=== PATIENT | male | born 1985 | race Caucasian/White ===

== ENCOUNTER 2018-03-10 11:05 | Emergency (ER) | payer BC ==
[2018-03-10] MEDS ORDERED: Morphine INJ** 4 MG/ML 1 ML CARPUJECT IV ONE (11:36)
[2018-03-10] MEDS ORDERED: Ketorolac INJ* 30 MG/ML 1 ML VIAL IV PUSH ONE (11:36)
[2018-03-10] MEDS ORDERED: KETAMINE HCL* 50 MG/ML 10 ML VIAL IV ONE (12:39)
--- NOTE | 2018-03-10 12:46 | ED ---
Upper Extremity Pain - HPI Summary HPI Summary: Patient is a 32 y/o M w/ c/o right shoulder pain onsetting [employer]. He was getting out of his boat onto a dock when he slipped and fell in the water. While he was falling, he states he extended his right arm, jammed it, and is now experiencing pain at right shoulder. Pain is rated 10/10 on triage, movement is reported to aggravate pain with nothing alleviating. He notes penicillin and amoxicillin allergy. He denies smoking and drinking. Home medications and allergies denied. - History of Current Complaint Chief Complaint: EDShouDena Stated Complaint: POSS DISLOCATED RT SHOULDER Time Seen by Provider: 03/10/18 11:15 Hx Obtained From: Patient Mechanism Of Injury: Fall From A Standing Position Onset/Duration: Still Present Timing: Constant Severity Currently: Severe - 10/10 Pain Location: Shoulder - right Aggravating Factor(s): Movement Alleviating Factor(s): Nothing - Allergies/Home Medications Allergies/Adverse Reactions: Allergies Allergy/AdvReac Type Severity Reaction Status Date / Time amoxicillin Allergy Rash And Verified 03/10/18 11:11 Itching Penicillins Allergy Rash And Verified 03/10/18 11:12 Itching PMH/Surg Hx/FS Hx/Imm Hx Sensory History: Denies: Hx Legally Blind, Hx Deafness Opthamlomology History: Denies: Hx Legally Blind EENT History: Denies: Hx Deafness Infectious Disease History: No Infectious Disease History: Denies: Traveled Outside the [place] in Last 30 Days - Family History Known Family History: Negative: Blood Disorder - Social History Alcohol Use: Occasionally Substance Use Type: Reports: None Smoking Status (MU): Never Smoked Tobacco Review of Systems Negative: Fever - on vitals 97.2 F Positive: Other - right shoulder pain All Other Systems Reviewed And Are Negative: Yes Physical Exam - Summary Physical Exam Summary: Appearance: Well appearing, no pain distress Skin: warm, dry, reflects adequate perfusion Head/face: normal Eyes: EOMI, RADHA ENT: normal Neck: supple, non-tender Respiratory: CTA, breath sounds present Cardiovascular: RRR, pulses symmetrical Abdomen: non-tender, soft Bowel Sounds: present Musculoskeletal: pain in RUE without any deformity, strength/ROM intact Neuro: normal, sensory motor intact, A&Ox3 Triage Information Reviewed: Yes Vital Signs On Initial Exam: Initial Vitals Temp Pulse Resp BP Pulse Ox 97.2 F 85 19 152/99 95 03/10/18 11:07 03/10/18 11:07 03/10/18 11:07 03/10/18 11:07 03/10/18 11:07 Vital Signs Reviewed: Yes Procedures - Procedure Summary Procedure Summary: Closed reduction of the right shoulder: The patient's trapezius muscle and deltoid muscle were massaged for 10 minutes. External rotation of adducted arm successfully reduced the dislocation. Procedure was done without the need for conscious sedation. Patient regained FROM in RUE. Patient denied post reduction x-ray. He was placed in a sling post reduction. He tolerated this well without cough location. The extremity is neurovascularly intact. - Joint Reduction Right Joint Reduction Site: shoulder (R) Conscious Sedation: No Post Joint Reduction Film: refused post reduction x-ray Diagnostics - Vital Signs Vital Signs Temp Pulse Resp BP Pulse Ox 03/10/18 12:11 17 03/10/18 11:07 97.2 F 85 19 152/99 95 - Laboratory Lab Statement: Any lab studies that have been ordered have been reviewed, and results considered in the medical decision making process. - Radiology Right Shoulder X-ray Xray Interpretation: Positive (See Comments) Radiology Interpretation Completed By: Radiologist - REPORT AND IMPRESSION: #. Anterior glenohumeral dislocation. #. No associated Hill-Sachs impaction fracture or osseous Bankart lesion evident. #. Normal acromioclavicular joint alignment. #. Soft tissue swelling about the shoulder. This report was reviewed by ED physician. Re-Evaluation - Re-Evaluation First Eval Re-Evaluation Time: 12:47 Change: Improved Comment: Right shoulder reduction performed. Patient experienced immediate relief and has regained FROM in RUE, refuses post reduction X-ray. He will be discharged to home and is agreeable with plan. Course/Dx - Course Course Of Treatment: Patient with right shoulder dislocation. We are prepping to reduce him under moderate sedation however we are able to do this without after massage of the musculature. He refused any post reduction x-ray. He regained full range of motion and has no deltoid paresthesia. He was placed in a sling and will follow-up with his doctor. - Diagnoses Differential Diagnosis/HQI/PQRI: Positive: Contusion, Fracture (Closed), Strain , Sprain, Other - Dislocation Provider Diagnoses: Anterior dislocation of right shoulder Discharge - Sign-Out/Discharge Documenting (check all that apply): Patient Departure - admit - Discharge Plan Condition: Improved Disposition: HOME Patient Education Materials: Shoulder Dislocation Exercises (GEN), Shoulder Dislocation (ED) Referrals: [facility] [Outside] Additional Instructions: Follow-up with orthopedist as needed on your return home. Return with increased pain, weakness, numbness, new symptoms or other concerns. Tylenol, ibuprofen as needed for discomfort. Sling for the next week. - Billing Disposition and Condition Condition: IMPROVED Disposition: Home - Attestation Statements Document Initiated by Yoanibshun: Yes Documenting Scribe: Yinka Chin Provider For Whom Samson is Documenting (Include Credential): Mich Mcpherson MD Scribe Attestation: Yinka Sofia, scribed for Mich Mcpherson MD on 03/10/18 at 1545. Scribe Documentation Reviewed: Yes Provider Attestation: The documentation as recorded by the Yinka carson accurately reflects the service I personally performed and the decisions made by me, Mich Mcpherson MD
[2018-03-10] MEDS ORDERED: oxyCODONE/Acetamin 5/325 MG* TAB PO ONE (12:54)
--- NOTE | 2018-03-10 12:55 | RAD ---
Indication: RIGHT shoulder pain post fall with dislocation. Limited range of motion. Comparison: No relevant prior exams available on the [facility] for comparison. Technique: AP and scapular Y views RIGHT shoulder REPORT AND IMPRESSION: #. Anterior glenohumeral dislocation. #. No associated Hill-Sachs impaction fracture or osseous Bankart lesion evident. #. Normal acromioclavicular joint alignment. #. Soft tissue swelling about the shoulder.
[2018-03-10] MEDS ORDERED: Morphine VIAL* 10 MG/ML 1 ML VIAL IV ONE (13:00)
[2018-03-10 14:28] VITALS: BP 135/78
== END 2018-03-10 13:15 | disposition home or self-care (01) ==
LOC: ED 11:05
DX: S43.004A Unspecified dislocation of right shoulder joint, initial encounter (principal); M25.511 Pain in right shoulder; W19.XXXA Unspecified fall, initial encounter; Y92.9 Unspecified place or not applicable
CPT/HCPCS: 96374; 96375; 99282; A9270-GY; J1885; J2270